=== PATIENT | female | born 1970 | race Caucasian/White ===

== ENCOUNTER 2020-01-01 09:45 | Day surgery (SDC) | payer BC, OTHER ==
[2019-12-31 10:54] VITALS: BMI 23.9
--- NOTE | 2019-12-31 11:22 | P.GSHP ---
History of Present Illness H&P Date: 12/31/19 Pleasant 49 yo female with a long history of ca ox stones who for the last week has had intermittent sever colic on the right side due to a 5 mm stone in the distal right ureter as seen on ct scan Due to the persistent pain, nausea and vomitting she wishes surgery to remove the stone. - Constitutional Constitutional: Denies chills, Denies fever - EENT Eyes: denies blurred vision, denies pain Ears, nose, mouth and throat: Denies headache, Denies sore throat - Cardiovascular Cardiovascular: Denies chest pain, Denies shortness of breath - Respiratory Respiratory: Denies cough, Denies 7 - Gastrointestinal Gastrointestinal: Denies abdominal pain, Denies diarrhea, Denies nausea, Denies vomiting - Genitourinary (Female) Genitourinary: Denies dysuria, Denies hematuria - Genitourinary (Male) Genitourinary: Denies dysuria, Denies hematuria - Musculoskeletal Musculoskeletal: Denies myalgias - Integumentary Integumentary: Denies pruritus, Denies rash - Neurological Neurological: Denies numbness, Denies weakness - Psychiatric Psychiatric: Denies anxiety, Denies depression - Endocrine Endocrine: Denies fatigue, Denies weight change Past Medical History Past Medical History: Thyroid Disorder Additional Past Medical History / Comment(s): migraines, mult kidney stones, seasonal allergies, occ constipation, History of Any Multi-Drug Resistant Organisms: None Reported Past Surgical History: Section, Hysterectomy, Orthopedic Surgery Additional Past Surgical History / Comment(s): SEVERAL DOUBLE J STENTS, MULT LITHOTRIPSYS, cystoscopy, BILATERAL percutaneous nephrostolithotomy, sinus surgery, lasik eye surgery, left hip surgery Past Anesthesia/Blood Transfusion Reactions: Motion Sickness, Postoperative Nausea & Vomiting (PONV) Smoking Status: Current some day smoker - Past Family History Mother Family Medical History: No Reported History Medications and Allergies Home Medications Medication Instructions Recorded Confirmed Type Levothyroxine Sodium [Synthroid] 75 mcg PO DAILY 05/27/15 12/31/19 History Butalb/APAP/Caff 50-325-40Mg 1 tab PO BID PRN 05/25/16 12/31/19 History [Fioricet 50-325-40] Hydrocodone/Acetaminophen [[place] 1 tab PO Q6HR PRN 12/31/19 12/31/19 History 5-325] Zonisamide 100 mg PO BID 12/31/19 12/31/19 History Allergies Allergy/AdvReac Type Severity Reaction Status Date / Time codeine AdvReac Severe Nausea & Verified 12/31/19 10:43 Vomiting Surgical - Exam - General well developed, well nourished, moderate distress - Eyes PERRL - ENT no hearing loss - Neck trachea midline - Respiratory normal expansion, normal respiratory effort - Cardiovascular Rhythm: regular - Abdomen Abdomen: tender - Integumentary no rash, no growths - Neurologic normal coordination, normal sensation - Musculoskeletal normal gait, normal posture - Psychiatric oriented to time, oriented to person, oriented to place, speech is normal, memory intact Results - Imaging CT scan - abdomen: report reviewed, image reviewed CT scan - pelvis: report reviewed, image reviewed Assessment and Plan Assessment: Impression: Right ureteral stone with severe ureteral colic. Plan Right ureteroscopy with laser lithotripsy
--- NOTE | 2020-01-01 08:49 | XR ---
EXAMINATION TYPE: XR KUB DATE OF EXAM: 01/01/2020 8:36 AM CLINICAL HISTORY: Right-sided abdominal pain. Nephrolithiasis. TECHNIQUE: Single supine KUB image of the abdomen is obtained. COMPARISON: 05/25/2016. FINDINGS: The previously seen large left renal calculus is no longer present. There are at least 4 le ft renal calculi with the largest measuring 6 mm. Probable right renal calculi are seen, at least 3 i n number measuring up to 3 mm, however these are partially obscured by overlying bowel. New calculus overlying the urinary bladder measures 9 mm in comparison to the prior. Right hemipelvic phlebolith i s again noted. Punctate densities adjacent to the right transverse process could be within bowel, phl eboliths, or within the ureter. IMPRESSION: 1. Bilateral nephrolithiasis although the right renal shadow is partially obscured by bowel. 2. Punctate calculi adjacent to the right L5 transverse process could be within bowel, phleboliths, o r within the ureter. 4. New 9 mm calculus overlying the urinary bladder exam of 2015 may be located within the urinary swapna dder or at the right distal ureter.
[~2020-01-01 09:45] MED LIST: DEXAMETHASONE SOD PHOSPHATE 10 MG/ML 1 ML VIAL IV ONE; HYDROmorphone 0.5 MG/0.5 ML SYRINGE IVP PRN; LACTATED RINGERS 1,000 ML IV SCH; ONDANSETRON 4 MG/2 ML VIAL IVP ONE; SCOPOLAMINE 1.5MG/72HR PATCH TRANSDERM ONE
[2020-01-01] MEDS ORDERED: fentaNYL (PF) 50 MCG/ML 2 ML AMP ONE (10:15)
[2020-01-01] MEDS ORDERED: MIDAZOLAM 2 MG/2 ML VIAL ONE (10:15)
[2020-01-01] MEDS ORDERED: LIDOCAINE 1% INJ 10MG/ML (20 ML MDV) ONE (10:15)
[2020-01-01] MEDS ORDERED: PROPOFOL 10 MG/ML 20 ML VIAL IV ONE (10:15)
--- NOTE | 2020-01-01 10:47 | P.OP ---
Date of Procedure: 01/01/20 Preoperative Diagnosis: Right ureteral calculus Postoperative Diagnosis: Same Procedure(s) Performed: Cystoscopy, right ureteroscopy laser lithotripsy Anesthesia: HEATHER Surgeon: Pancho James Pathology: other (Stone) Condition: stable Disposition: PACU Indications for Procedure: The patient is 49. She has active urine calcium oxalate stone formation. She has had multiple metabolic evaluations different medical centers and continues to form stones. She has a 9-10 mm distal ureteral stone causing significant colic over the last week she comes ureteroscopic stone extraction Description of Procedure: The patient is brought to the operating suite. She is given a general end otracheal anesthesia. She's placed lithotomy position with sterile prep and drape. Under fluoroscopy the stone was seen in the region of the distal ureter. Cystoscopy Foroblique lens and 22-[place] sheath identifies normal urethra. The bladder mucosa is unremarkable. The right ureteral orifice is slightly swollen. The 7-[place] mini ureteroscope I passed the scope into the intramural tunnel wh ere the large stone is identified. With the 365 laser probe and 4 W of energy the stone was broken into tiny pieces and flushed out of the ureter. There is not enough edema to leave a double-J catheter. The bladder is drained the stone was collected the patient's awake and returned recovery in good condition. She tolerated procedure well be discharged home upon recovery and found the office in one week.
[2020-01-01 10:54] VITALS: TEMP 98.5
--- NOTE | 2020-01-01 11:02 | FL ---
EXAMINATION TYPE: FL guidance operating room DATE OF EXAM: 01/01/2020 CLINICAL HISTORY: Right sided renal stones. TECHNIQUE: Fluoroscopy. COMPARISON: Same day abdominal x-ray. FINDINGS: Fluoroscopic guidance was provided during right renal stone retrieval procedure performed by Dr. James. A total of 2 seconds of fluoroscopic time was utilized during the procedure and two sp ot intraoperative images are acquired. Images of the pelvis and lower abdomen do not show good visual ization of right sided stone. IMPRESSION: As Above.
[2020-01-01 11:56] VITALS: RESP 17
[2020-01-01 12:00] VITALS: BP 113/63; PULSE 77
== END 2020-01-01 12:00 | disposition home or self-care (01) ==
LOC: OR 09:45
PROVIDERS: ATTEND Urology
DX: N20.1 Calculus of ureter (principal); E07.9 Disorder of thyroid, unspecified; G43.909 Migraine, unspecified, not intractable, without status migrainosus; F17.200 Nicotine dependence, unspecified, uncomplicated; Z88.5 Allergy status to narcotic agent; Z79.890 Hormone replacement therapy; Z79.899 Other long term (current) drug therapy; Z87.442 Personal history of urinary calculi; Z90.710 Acquired absence of both cervix and uterus; Z98.891 History of uterine scar from previous surgery; Z98.890 Other specified postprocedural states
CPT/HCPCS: 82365; 87635; 74018; 52353; J2250; J1100; J2405; J0690; J2001; J3010; J2704; J1170

== ENCOUNTER → 2023-02-07 | Outpatient (CLI) | payer BC ==
[2023-02-07 20:15] LABS: BUN/Creat Ratio 8.78 Ratio (12.00-20.00); Blood Urea Nitrogen 7.9 mg/dL (9.0-27.0); Calcium 9.9 mg/dL (8.7-10.3); Carbon Dioxide 21.9 mmol/L (21.6-31.8); Chloride 104 mmol/L (96-109); Glucose 81 mg/dL (70-110); Potassium 5.1 mmol/L (3.5-5.5); Sodium 141 mmol/L (135-145)
[2023-02-07 22:09] LABS: Basophils # (A) 0.07 X 10*3/uL (0.00-0.10); Basophils % (A) 0.9 %; Eosinophils # (A) 0.08 X 10*3/uL (0.04-0.35); HGB 14.6 d/dL (12.0-15.0); Lymphocytes # (A) 1.28 X 10*3/uL (0.90-5.00); Lymphocytes % (A) 16.5 %; MCHC 32.4 d/dL (32.0-37.0); MCV 92.4 FL (80.0-97.0); Mean Platelet Volume 9.9 FL (9.5-12.2); Monocytes # (A) 0.41 X 10*3/uL (0.20-1.00); Monocytes % (A) 5.3 %; NRBC Per 100 WBC 0 X 10*3/uL (0.00-0.01); Neutrophils # (A) 5.87 X 10*3/uL (1.80-7.70); Neutrophils % (A) 75.9 %; Platelet Count 317 X 10*3/uL (140-440); RBC 4.87 X 10*6/uL (4.10-5.20); WBC 7.74 X 10*3/uL (4.50-10.00)
== END | disposition home or self-care (01) ==
LOC: LABPAT 10:59
PROVIDERS: ATTEND Urology
DX: Z01.812 Encounter for preprocedural laboratory examination (principal); N20.1 Calculus of ureter
CPT/HCPCS: 80048; 85025

== ENCOUNTER 2023-02-08 08:43 | Day surgery (SDC) | payer BC ==
[2023-02-07 13:20] VITALS: BMI 23.3
--- NOTE | 2023-02-07 18:13 | P.GSHP ---
History of Present Illness H&P Date: 02/07/23 52 yo female with a history of stones has a 3 day history of right flank pain with pelvic pressure. A ct scan was done identifying a 6 mm right uvj stone. She wants the stone out because she has persistnet pain and has to go out of town in the near fut. SHe comes for a right ureteroscopy with laser lithotripsy. - Constitutional Constitutional: Denies chills, Denies fever - EENT Eyes: denies blurred vision, denies pain Ears, nose, mouth and throat: Denies headache, Denies sore throat - Cardiovascular Cardiovascular: Denies chest pain, Denies shortness of breath - Respiratory Respiratory: Denies cough, Denies 7 - Gastrointestinal Gastrointestinal: Denies abdominal pain, Denies diarrhea, Denies nausea, Denies vomiting - Genitourinary (Female) Genitourinary: Denies dysuria, Denies hematuria - Genitourinary (Male) Genitourinary: Denies dysuria, Denies hematuria - Musculoskeletal Musculoskeletal: Denies myalgias - Integumentary Integumentary: Denies pruritus, Denies rash - Neurological Neurological: Denies numbness, Denies weakness - Psychiatric Psychiatric: Denies anxiety, Denies depression - Endocrine Endocrine: Denies fatigue, Denies weight change Past Medical History Past Medical History: GERD/Reflux, Thyroid Disorder Additional Past Medical History / Comment(s): migraines, mult kidney stones, occ constipation, hiatal hernia, hx of overactive parathyroid (removed). History of Any Multi-Drug Resistant Organisms: None Reported Past Surgical History: Section, Hysterectomy, Orthopedic Surgery Additional Past Surgical History / Comment(s): SEVERAL DOUBLE J STENTS, MULT LITHOTRIPSYS, cystoscopy, BILATERAL percutaneous nephrostolithotomy, sinus surgery, lasik eye surgery, left hip surgery, parathyroidectomy Past Anesthesia/Blood Transfusion Reactions: Previous Problems w/ Anesthesia, Motion Sickness, Postoperative Nausea & Vomiting (PONV) Past Psychological History: No Psychological Hx Reported Smoking Status: Former smoker Past Alcohol Use History: None Reported Additional Past Alcohol Use History / Comment(s): started smoking age 22, quit smoking sep 2022 Past Drug Use History: None Reported - Past Family History Mother Family Medical History: No Reported History Medications and Allergies Home Medications Medication Instructions Recorded Confirmed Type Levothyroxine Sodium [Synthroid] 75 mcg PO DAILY 05/27/15 02/07/23 History Butalb/APAP/Caff 50-325-40Mg 1 tab PO BID PRN 05/25/16 02/07/23 History [Fioricet 50-325-40] Hydrocodone/Acetaminophen [[place] 1 tab PO Q6HR PRN 12/31/19 02/07/23 History 5-325] Sulfamethox-Tmp 800-160Mg [Bactrim 1 tab PO DAILY 02/07/23 02/07/23 History DS 800-160 mg] Tamsulosin HCl [Flomax] 0.4 mg PO PC-BRKFST 02/07/23 02/07/23 History Allergies Allergy/AdvReac Type Severity Reaction Status Date / Time codeine AdvReac Severe Nausea & Verified 02/07/23 12:56 Vomiting Surgical - Exam - General well developed, well nourished, no distress - Eyes normal ocular movement, no icteric - ENT no hearing loss, no congestion - Neck no masses, trachea midline - Respiratory normal respiratory effort, clear to auscultation - Abdomen Abdomen: soft, non tender, no guarding, no rigid, no rebound - Integumentary no rash, no abnormal pigmentation - Neurologic no disoriented, no combative - Psychiatric oriented to time, oriented to person, oriented to place, speech is normal, memory intact Results - Imaging CT scan - abdomen: report reviewed, image reviewed CT scan - pelvis: report reviewed Assessment and Plan Assessment: Impression Right distal ureteral stone, Bilateral renal stones Plan: right ureterocopy with laser lithotripsy
[2023-02-08] MEDS ORDERED: droPERidol 5 MG/2 ML VIAL IVP ONE (09:07)
[2023-02-08] MEDS ORDERED: LACTATED RINGERS 1,000 ML IV SCH (09:07)
[2023-02-08] MEDS ORDERED: LIDOCAINE 1% (10MG/ML) FOR IV START INTRADERMA PRN (09:07)
[2023-02-08] MEDS ORDERED: fentaNYL (PF) 50 MCG/ML 2 ML AMP IV PRN (09:07)
[2023-02-08] MEDS ORDERED: DEXAMETHASONE SOD PHOSPHATE 4 MG/ML 1 ML VIAL IV ONE (09:07)
[2023-02-08] MEDS ORDERED: ONDANSETRON 4 MG/2 ML VIAL IVP ONE (09:07)
--- NOTE | 2023-02-08 09:24 | XR ---
EXAMINATION TYPE: XR KUB DATE OF EXAM: 02/08/2023 8:56 AM INDICATION: Patient age:Female; 52 years old; Reason for study: N20.0; COMPARISON: 01/01/2020 TECHNIQUE: One radiographic view of the abdomen was obtained. FINDINGS: The bowel gas pattern is nonspecific without dilated loops of small or large bowel. There i s no evidence for organomegaly or pneumoperitoneum. The osseous structures are intact. Millimeter ri ght distal ureteral calculus, multiple calculi project over the kidneys bilaterally. Fecal material a nd gas are demonstrated throughout the colon and rectum. IMPRESSION: Right 6 mm distal ureteral calculus suspected. Consider evaluation with CT renal stone protocol. Rex tional consultations project over the kidneys which are slightly evaluated on radiography.
[2023-02-08 09:26] VITALS: RESP 16
[2023-02-08] MEDS ORDERED: SCOPOLAMINE 1 MG/72 HR PATCH TRANSDERM ONE (09:41)
[2023-02-08] MEDS ORDERED: SUCCINYLCHOLINE CHLORIDE 200 MG/10 ML VIAL IV ONE (10:39)
[2023-02-08] MEDS ORDERED: LIDOCAINE 2% INJ 20 MG/ML (2 ML VIAL) ONE (10:39)
[2023-02-08] MEDS ORDERED: fentaNYL (PF) 50 MCG/ML 2 ML AMP ONE (10:39)
[2023-02-08] MEDS ORDERED: MIDAZOLAM 2 MG/2 ML VIAL ONE (10:39)
[2023-02-08] MEDS ORDERED: PROPOFOL 10 MG/ML 20 ML VIAL IV ONE (10:39)
[2023-02-08] MEDS ORDERED: SODIUM CHLORIDE 0.9% 50 ML with ceFAZolin 1,000 MG IV ONE ×2 (10:55)
--- NOTE | 2023-02-08 11:14 | P.OP ---
Date of Procedure: 02/08/23 Preoperative Diagnosis: Right ureteral calculus with obstruction and colic Postoperative Diagnosis: Same Procedure(s) Performed: Cystoscopy, right ureteroscopy with laser lithotripsy and stone basketing Anesthesia: HEATHER Surgeon: Pancho James Estimated Blood Loss (ml): 0 Pathology: none sent Condition: stable Disposition: PACU Indications for Procedure: . She is passing a 6 mm distal right ureteral stone. Because of colic she comes for ureteroscopy and laser lithotripsy right Description of Procedure: Patient brought to the operative suite. Given a general anesthetic and placed lithotomy position with sterile prep. The stone was seen under fluoroscopy. Cystoscopy with a Foroblique lens and 21-[place] sheath is normal. Both ureteral orifices are down find the right is somewhat swollen. The 7-[place] mini ureteroscope was passed up to the stone in the right ureter. With the 365 laser probe the stone was broken into tiny pieces the larger pieces are basketed and pulled into the bladder. I reinspected the right ureter there is no apolinar ining stone. There is not enough edema to leave the stent. The bladder is drained the patient is awakened and returned recovery room good condition. She'll be discharged home upon recovery and found the office in one week.
[2023-02-08 11:33] VITALS: TEMP 97.5
--- NOTE | 2023-02-08 11:51 | FL ---
Intraoperative/procedural fluoroscopic services were provided. Total fluoroscopy time is 2 seconds wi th a total of 1 submitted images to PACS. Please see the operative/procedural note for further detail s. DAP: 0.1331 Gycm2
[2023-02-08 12:46] VITALS: BP 122/72; PULSE 68
== END 2023-02-08 12:47 | disposition home or self-care (01) ==
LOC: OR 08:43
PROVIDERS: ATTEND Urology
DX: N20.1 Calculus of ureter (principal); K21.9 Gastro-esophageal reflux disease without esophagitis; E07.9 Disorder of thyroid, unspecified; Z87.442 Personal history of urinary calculi; Z90.710 Acquired absence of both cervix and uterus; Z88.5 Allergy status to narcotic agent; Z98.890 Other specified postprocedural states; Z87.891 Personal history of nicotine dependence; Z79.899 Other long term (current) drug therapy
CPT/HCPCS: 74018; 52353; C1769; J2250; J0330; J1100; J2405; J0690; J3010; J2704; J2001

== ENCOUNTER → 2023-09-20 | Outpatient (CLI) | payer BC ==
--- NOTE | 2023-09-20 13:54 | XR ---
EXAMINATION TYPE: XR KUB DATE OF EXAM: 09/20/2023 1:38 PM CLINICAL INDICATION:Female, 52 years old with history of N20.0 Calculus kidney; [facility] COMPARISON: None. TECHNIQUE: One radiographic view of the abdomen was obtained. FINDINGS: The bowel gas pattern is nonspecific without dilated loops of small or large bowel. There i s no evidence for organomegaly or pneumoperitoneum. The osseous structures are intact. Fecal materia l and gas are demonstrated throughout the colon and rectum. The right pelvis near the ureterovesicul ar junction on prior is no longer visualized. There remains left renal calculi measuring up to 16 mm. IMPRESSION: Prior right ureterovesicular junction calculus measuring 6 mm on 01/31/2023 is no longer visualized. S table left renal calculi. Nonspecific bowel gas pattern without radiographic evidence for acute process.
== END | disposition home or self-care (01) ==
LOC: RADXRMAIN 13:26
PROVIDERS: ATTEND Urology
DX: N20.2 Calculus of kidney with calculus of ureter (principal)
CPT/HCPCS: 74018

== ENCOUNTER 2023-09-27 08:05 | Day surgery (SDC) | payer BC ==
[2023-09-22 14:37] VITALS: BMI 22.3
--- NOTE | 2023-09-26 12:34 | P.GSHP ---
History of Present Illness H&P Date: 09/26/23 Pleasant 52-year-old female with known history of active calcium oxalate urolithiasis. She has been treated multiple times by myself for kidney stones. She has been through the [facility] for metabolic evaluation. She still is forming stones. She recently was in the office where she had 3 left renal stones in the left lower pole as well as a 15 mm stone in the left upper pole consistent with a calyceal diverticulum. She is having intermittent colic. We discussed treatment options of. She comes for left ureteroscopy and laser lithotripsy - Constitutional Constitutional: Denies chills, Denies fever - EENT Eyes: denies blurred vision, denies pain Ears, nose, mouth and throat: Denies headache, Denies sore throat - Cardiovascular Cardiovascular: Denies chest pain, Denies shortness of breath - Respiratory Respiratory: Denies cough, Denies 7 - Gastrointestinal Gastrointestinal: Denies abdominal pain, Denies diarrhea, Denies nausea, Denies vomiting - Genitourinary (Female) Genitourinary: Denies dysuria, Denies hematuria - Genitourinary (Male) Genitourinary: Denies dysuria, Denies hematuria - Musculoskeletal Musculoskeletal: Denies myalgias - Integumentary Integumentary: Denies pruritus, Denies rash - Neurological Neurological: Denies numbness, Denies weakness - Psychiatric Psychiatric: Denies anxiety, Denies depression - Endocrine Endocrine: Denies fatigue, Denies weight change Past Medical History Past Medical History: GERD/Reflux, Thyroid Disorder Additional Past Medical History / Comment(s): migraines, mult kidney stones, occ constipation, hiatal hernia, hx of overactive parathyroid (removed). History of Any Multi-Drug Resistant Organisms: None Reported Past Surgical History: Section, Hysterectomy, Orthopedic Surgery Additional Past Surgical History / Comment(s): SEVERAL DOUBLE J STENTS, MULT LITHOTRIPSYS, cystoscopy, BILATERAL percutaneous nephrostolithotomy, sinus surgery, lasik eye surgery, left hip surgery, parathyroidectomy Past Anesthesia/Blood Transfusion Reactions: Previous Problems w/ Anesthesia, Motion Sickness, Postoperative Nausea & Vomiting (PONV) Smoking Status: Former smoker - Past Family History Mother Family Medical History: No Reported History Medications and Allergies Home Medications Medication Instructions Recorded Confirmed Type Ibuprofen [Motrin] 600 mg PO Q8HR PRN 09/22/23 09/22/23 History Levothyroxine Sodium [Synthroid] 50 mcg PO DAILY 09/22/23 09/22/23 History Linaclotide [Linzess] 72 mcg PO Q2D 09/22/23 09/22/23 History RABEprazole SODIUM 20 mg PO DAILY 09/22/23 09/22/23 History traMADol HCL 50 mg PO Q6H PRN 09/22/23 09/22/23 History Allergies Allergy/AdvReac Type Severity Reaction Status Date / Time codeine AdvReac Severe Nausea & Verified 09/22/23 14:23 Vomiting Surgical - Exam - General well developed, well nourished, no distress - Eyes normal ocular movement, no icteric - ENT no hearing loss, no congestion - Neck no masses, trachea midline - Respiratory normal respiratory effort, clear to auscultation - Abdomen Abdomen: soft, non tender, no guarding, no rigid, no rebound - Integumentary no rash, no abnormal pigmentation - Neurologic no disoriented, no combative - Psychiatric oriented to time, oriented to person, oriented to place, speech is normal, memory intact Results - Imaging Abdominal x-ray: report reviewed, image reviewed Assessment and Plan Assessment: Impression: Left renal calculi with colic Plan left ureteroscopy laser lithotripsy possible stent
[~2023-09-27 08:05] MED LIST changes: +AMPICILLIN 1,000 MG in SODIUM CHLORIDE 0.9% 50 ML IVPB PRN; -DEXAMETHASONE SOD PHOSPHATE 10 MG/ML 1 ML VIAL IV ONE; -HYDROmorphone 0.5 MG/0.5 ML SYRINGE IVP PRN; -LACTATED RINGERS 1,000 ML IV SCH; -ONDANSETRON 4 MG/2 ML VIAL IVP ONE; -SCOPOLAMINE 1.5MG/72HR PATCH TRANSDERM ONE
[2023-09-27] MEDS ORDERED: fentaNYL (PF) 50 MCG/ML 2 ML AMP IV PRN (08:46)
[2023-09-27] MEDS: LACTATED RINGERS 1,000 ML IV SCH (08:56)
--- NOTE | 2023-09-27 08:56 | XR ---
EXAMINATION TYPE: XR KUB DATE OF EXAM: 09/27/2023 8:18 AM CLINICAL INDICATION:Female, 52 years old with history of KUB ON ADMISSION; [facility] COMPARISON: 09/20/2023. TECHNIQUE: One radiographic view of the abdomen was obtained. FINDINGS: The bowel gas pattern is nonspecific without dilated loops of small or large bowel. There i s no evidence for organomegaly or pneumoperitoneum. The osseous structures are intact. Multiple merlyn cifications project over the left kidney measuring up to 15 mm. Fecal material and gas are demonstrat ed throughout the colon and rectum. IMPRESSION: Multiple calcifications project over the left kidney measuring up to 15 mm. Findings aren't significa ntly changed from 09/20/2023.
[2023-09-27] MEDS: DEXAMETHASONE SOD PHOSPHATE 4 MG/ML 1 ML VIAL IV ONE (09:07)
[2023-09-27] MEDS: ONDANSETRON 4 MG/2 ML VIAL IVP ONE (09:07)
[2023-09-27] MEDS: GENTAMICIN 80 MG in SODIUM CHLORIDE 0.9% 100 ML IVPB PRN (09:13)
[2023-09-27] MEDS ORDERED: KETOROLAC 15 MG/ML 1 ML VIAL ONE (10:29)
[2023-09-27] MEDS ORDERED: LIDOCAINE 1% INJ 10MG/ML (20 ML MDV) ONE (10:29)
[2023-09-27] MEDS ORDERED: fentaNYL (PF) 50 MCG/ML 2 ML AMP ONE (10:29)
[2023-09-27] MEDS ORDERED: MIDAZOLAM 2 MG/2 ML VIAL ONE (10:29)
[2023-09-27] MEDS ORDERED: PROPOFOL 10 MG/ML 20 ML VIAL IV ONE (10:29)
[2023-09-27] MEDS ORDERED: PHENYLEPHRINE 10 MG/ML VIAL ONE (10:29)
[2023-09-27] MEDS: LACTATED RINGERS 1,000 ML IV ONE (11:12)
--- NOTE | 2023-09-27 12:04 | P.OP ---
Date of Procedure: 09/27/23 Preoperative Diagnosis: Painful left renal stones Postoperative Diagnosis: Same Procedure(s) Performed: Cystoscopy, left ureteroscopy with laser lithotripsy Anesthesia: HEATHER Surgeon: Pancho James Estimated Blood Loss (ml): 0 Pathology: other (Stone) Condition: stable Disposition: PACU Indications for Procedure: The patient is 52. She has active calcium oxalate urolithiasis despite medical management and parathyroid surgery. She has a 15-16 mm painful left upper pole stone as well as 3 mid to lower pole 5 mm stones. She comes for left ureteroscopy and laser lithotripsy. She understands that suddenly stones could be calyceal diverticula including the upper pole stone Description of Procedure: Patient brought to the operative suite. Given a general anesthetic. Placed lithotomy position with a sterile prep and drape. Cystoscopy identifies a normal urethra normal ureteral orifices in normal bladder mucosa. An 035 wires passed up the left ureter into the renal pelvis. Over the wires passed a 99-33-[place] reentry sheath. The inner sheath is removed. I passed the flexible ureteroscope into the collecting system throughout. I identify 2 stones in the mid and lower pole calyx each relatively small. There is a very tight ostium to the 5-6 mm midpole stone that is probably in a calyceal diverticulum. The larger 16 mm stone is seen in the upper pole calyx, and not in a calyceal diverticulum. I first do laser lithotripsy to the 2 small lower pole stones. I then tried open the ostium of the infundibula to the calyceal diverticula but it is too tight to do so successfully. I then moved to the upper pole stone and with the 275 laser probe slowly destroyed the upper pole stone into sand a. I basket the largest fragments. I irrigate thoroughly the collecting system and other than sand there is no significant remaining fr agments. I do pullout ureteroscopy and see no remaining stones. I elect not to leave a stent. The bladder is drained the patient is awakened and returned recovery room good condition. She'll be discharged home upon recovery and found the office in one week. Blood loss is minimal
[2023-09-27 12:16] VITALS: TEMP 97
[2023-09-27] MEDS: HYDROmorphone 0.5 MG/0.5 ML SYRINGE IVP ONE ×2 (12:34→12:41)
[2023-09-27] MEDS ORDERED: HYDROcodone/APAP 5-325MG 1 EACH TAB ONE (13:13)
[2023-09-27] MEDS: HYDROcodone/APAP 5-325MG 1 EACH TAB PO ONE (13:14)
[2023-09-27 13:16] VITALS: PULSE 64; RESP 16
[2023-09-27 13:46] VITALS: BP 111/60
--- NOTE | 2023-09-27 16:01 | FL ---
EXAMINATION TYPE: FL guidance operating room DATE OF EXAM: 09/27/2023 Comparison: None Clinical History: 52-year-old female CYSTO LITHOLEFT RENAL STONE Findings: FLUORO - 25 SEC DAP - 1.1155 Gycm2. 9 images submitted. Impression: Fluoroscopy for urology procedure as above.
== END 2023-09-27 14:02 | disposition home or self-care (01) ==
LOC: OR 08:05
PROVIDERS: ATTEND Urology
DX: N20.0 Calculus of kidney (principal); K21.9 Gastro-esophageal reflux disease without esophagitis; Z98.891 History of uterine scar from previous surgery; Z90.710 Acquired absence of both cervix and uterus; Z98.890 Other specified postprocedural states; Z87.891 Personal history of nicotine dependence; Z79.890 Hormone replacement therapy; Z79.899 Other long term (current) drug therapy; Z88.5 Allergy status to narcotic agent
CPT/HCPCS: 82365; 74018; 52353; C1769; C1894; J2250; J1100; J2405; J2001; J3010; J1580; J1885; J2704; J1170; J2371

== ENCOUNTER 2024-07-29 07:46 | Observation (INO) | payer BC ==
[2024-07-29 08:28] LABS: Basophils # (A) 0.1 k/uL (0-0.2); Basophils % (A) 1 %; Eosinophils # (A) 0.3 k/uL (0-0.7); Eosinophils % (A) 3 %; HCT 41.8 % (34.0-46.0); HGB 13.7 gm/dL (11.4-16.0); Lymphocytes % (A) 21 %; MCH 29.8 pg (25.0-35.0); MCHC 32.8 g/dL (31.0-37.0); MCV 90.7 fL (80.0-100.0); Mean Platelet Volume 6.7; Monocytes # (A) 0.5 k/uL (0-1.0); Monocytes % (A) 6 %; Neutrophils # (A) 6.2 k/uL (1.3-7.7); Neutrophils % (A) 68 %; Platelet Count 300 k/uL (150-450); RBC 4.61 m/uL (3.80-5.40); RDW 12.1 % (11.5-15.5); WBC 9.1 k/uL (3.8-10.6)
[2024-07-29 08:39] LABS: ALT 17 U/L (4-34); AST 24 U/L (14-36); African American GFR (CKD) 75 (>60 ml/min/1.73 sqM); Albumin 4.1 g/dL (3.5-5.0); Alkaline Phosphatase 93 U/L (38-126); Anion Gap 6 mmol/L; Blood Urea Nitrogen 19 mg/dL (7-17); Calcium 9.2 mg/dL (8.4-10.2); Carbon Dioxide 29 mmol/L (22-30); Chloride 103 mmol/L (98-107); Glucose 95 mg/dL (74-99); Non-African American GFR(CKD) 65 (>60 ml/min/1.73 sqM); Potassium 4.2 mmol/L (3.5-5.1); Sodium 138 mmol/L (137-145); Total Bilirubin 0.5 mg/dL (0.2-1.3); Total Protein 6.7 g/dL (6.3-8.2)
[2024-07-29 08:47] LABS: Appearance,Urine Clear (Clear); Bilirubin,Urine Negative (Negative); Blood,Urine Large (Negative); Color,Urine Colorless; Glucose,Urine (UA) Negative (Negative); Ketones,Urine Negative (Negative); Leukocyte Esterase,Urine Small (Negative); Nitrite,Urine Negative (Negative); Protein,Urine Negative (Negative); RBC,Urine 3 /hpf (0-5); Specific Gravity,Urine 1.005 (1.001-1.035); Squamous Epithelial Cell,Urine 1 /hpf (0-4); Urobilinogen,Urine <2.0 mg/dL (<2.0); WBC,Urine 5 /hpf (0-5)
--- NOTE | 2024-07-29 08:50 | ED ---
General Adult HPI - General Chief complaint: Abdominal Pain Stated complaint: L sided flank pain Time Seen by Provider: 07/29/24 08:03 Source: patient Mode of arrival: ambulatory Limitations: no limitations - History of Present Illness Initial comments: Dictation was produced using [employer] dictation software. please excuse any grammatical, word or spelling errors. Chief Complaint: 53-year-old female left flank pain History of Present Illness: Patient is a 53-year-old female extensive history of nephrolithiasis. States that earlier this year she passed a large 10 mm stone. Over the last week she has been dealing with left-sided flank pain. Mild associated nausea. No fever, chills or night sweats. Patient has had multiple urologic procedures for treatment of kidney stones. Patient states that the pain is mildly colicky and slightly constant The ROS documented in this emergency department record has been reviewed and confirmed by me. Those systems with pertinent positive or negative responses have been documented in the HPI. All other systems are other negative and/or noncontributory. - Related Data Home Medications Medication Instructions Recorded Confirmed Ibuprofen [Motrin] 600 mg PO Q8HR PRN 09/22/23 09/27/23 Levothyroxine Sodium [Synthroid] 50 mcg PO DAILY 09/22/23 09/27/23 Linaclotide [Linzess] 72 mcg PO Q2D 09/22/23 09/27/23 RABEprazole SODIUM 20 mg PO DAILY 09/22/23 09/27/23 traMADol HCL 50 mg PO Q6H PRN 09/22/23 09/27/23 Previous Rx's Medication Instructions Recorded HYDROcodone/APAP 5-325MG [[place] 1 tab PO Q4HR PRN #14 tab 09/27/23 5-325] Ketorolac [Toradol] 10 mg PO Q6HR PRN #20 tab 09/27/23 Allergies Allergy/AdvReac Type Severity Reaction Status Date / Time codeine AdvReac Severe Nausea & Verified 07/29/24 08:02 Vomiting Review of Systems ROS Statement: Those systems with pertinent positive or pertinent negative responses have been documented in the HPI. ROS Other: All systems not noted in ROS Statement are negative. Past Medical History Past Medical History: GERD/Reflux, Hyperlipidemia, Thyroid Disorder Additional Past Medical History / Comment(s): migraines, mult kidney stones, occ constipation, hiatal hernia, hx of overactive parathyroid (removed). History of Any Multi-Drug Resistant Organisms: None Reported Past Surgical History: Section, Hysterectomy, Orthopedic Surgery Additional Past Surgical History / Comment(s): SEVERAL DOUBLE J STENTS, MULT LITHOTRIPSYS, cystoscopy, BILATERAL percutaneous nephrostolithotomy, sinus surgery, lasik eye surgery, left hip surgery, parathyroidectomy Past Anesthesia/Blood Transfusion Reactions: Previous Problems w/ Anesthesia, Motion Sickness, Postoperative Nausea & Vomiting (PONV) Past Psychological History: No Psychological Hx Reported Smoking Status: Current every day smoker Past Alcohol Use History: None Reported Past Drug Use History: None Reported - Past Family History Mother Family Medical History: No Reported History General Exam - General Exam Comments Initial Comments: PHYSICAL EXAM: General Impression: Alert and oriented x3, not in acute distress HEENT: Normocephalic atraumatic, extra-ocular movements intact, pupils equal and reactive to light bilaterally, mucous membranes moist. Cardiovascular: Heart regular rate and rhythm Chest: Able to complete full sentences, no retractions, no tachypnea Abdomen: abdomen soft, non-tender, non-distended, no organomegaly Musculoskeletal: Pulses present and equal in all extremities, no peripheral edema, no CVA pain Motor: no focal deficits noted Neurological: CN II-XII grossly intact, no focal motor or sensory deficits noted Skin: Intact with no visualized rashes Psych: Normal affect and mood Limitations: no limitations Course Vital Signs 07/29/24 08:00 Temperature 98.4 F Pulse Rate 71 Respiratory 20 Rate Blood Pressure 100/49 O2 Sat by Pulse 100 Oximetry Medical Decision Making - Medical Decision Making Was pt. sent in by a medical professional or institution (, PA, DISCHARGE PLANNER, urgent care, hospital, or prison...) When possible be specific @ -No Did you speak to anyone other than the patient for history (EMS, parent, family, police, friend...)? What history was obtained from this source @ -No Did you review nursing and triage notes (agree or disagree)? Why? @ -I reviewed and agree with nursing and triage notes Were old charts reviewed (outside hosp., previous admission, EMS record, old EKG, old radiological studies, urgent care reports/EKG's, prison records)? Report findings @ -No old charts were reviewed Differential Diagnosis (chest pain, altered mental status, abdominal pain women, abdominal pain men, vaginal bleeding, musculoskeletal, weakness, fever, dyspnea, syncope, headache, dizziness, GI bleed, back pain, seizure, CVA, palpatations, mental health)? @ -Differential Abdominal Pain Women: Appendicitis, Cholecystitis, diverticulosis, ischemic bowel, pancreatitis, hepatitis, UTI, gastroenteritis, AAA, incarcerated hernia, bowel obstruction, constipation, inflammatory bowel, hepatitis, peptic ulcer disease, splenic infarction, perforated viscus, vulvitis, ovarian torsion, PID, kidney stone, placenta abruption, this is not meant to be an all-inclusive list EKG interpreted by me (3pts min.). @ -None done X-rays interpreted by me (1pt min.). @ -None done CT interpreted by me (1pt min.). @ -CT shows obstructing left ureteral stone at the distal portion of the ureter U/S interpreted by me (1pt. min.). @ -None done What testing was considered but not performed or refused? (CT, X-rays, U/S, labs)? Why? @ -None What meds were considered but not given or refused? Why? @ -None Was smoking cessation discussed for >3mins.? @ -No Were there social determinants of health that impacted care today? How? (Homelessness, low income, unemployed, alcoholism, drug addiction, elam sportation, low edu. Level, literacy, decrease access to med. care, snf, rehab)? @ -No Was there de-escalation of care discussed even if they declined (Discuss DNR or withdrawal of care, Hospice)? DNR status @ -No What co-morbidities impacted this encounter? (DM, HTN, Smoking, COPD, CAD, Cancer, CVA, ARF, Chemo, Hep., AIDS, mental health diagnosis, sleep apnea, morbid obesity)? @ -Kidney stones Was patient admitted / discharged? Hospital course, mention meds given and route, prescriptions, significant lab abnormalities, going to OR and other pertinent info. @ -53-year-old female presents to the emergency department with symptomatic left kidney stone. She has been dealing with her symptoms for several days. Vital signs stable. Patient distress at the bedside. Abdomen is benign. La boratory evaluation obtained. CBC metabolic panel urinalysis negative. CT shows obstructing nephrolithiasis. Patient states that her pain is difficult to control. She requests hospital admission for further care. Case discussed with Dr. James who is agreeable with admission. Request patient be n.p.o. for likely urologic procedure Did you discuss the management of the patient with other professionals (professionals i.e. , PA, DISCHARGE PLANNER, lab, RT, psych nurse, medical social consultant, sales representative public utilities, teacher, hospital chief executive officer, correctional casework specialist)? Give summary @ -No Was critical care preformed (if so, how long)? @ -No Undiagnosed new problem with uncertain prognosis? @ -No Drug Therapy requiring intensive monitoring for toxicity (Heparin, Nitro, Insulin, Cardizem)? @ -No Were any procedures done? @ -No Diagnosis/symptom? Acute, or Chronic, or Acute on Chronic? Uncomplicated (without systemic symptoms) or Complicated (systemic symptoms)? @ -Symptomatic nephrolithiasis Side effects of treatment? @ -No Exacerbation, Progression, or Severe Exacerbation? @ -No Poses a threat to life or bodily function? How? (Chest pain, [place], [place], pneumonia, PE, COPD, DKA, ARF, appy, cholecystitis, CVA, Diverticulitis, Homicidal, Suicidal, threat to staff... and all critical care pts) @ -yes - Lab Data Result diagrams: 07/29/24 08:20 07/29/24 08:20 Lab Results 07/29/24 07/29/24 07/29/24 Range/Units 08:20 08:20 08:20 WBC 9.1 (3.8-10.6) k/uL RBC 4.61 (3.80-5.40) m/uL Hgb 13.7 (11.4-16.0) gm/dL Hct 41.8 (34.0-46.0) % MCV 90.7 (80.0-100.0) fL MCH 29.8 (25.0-35.0) pg MCHC 32.8 (31.0-37.0) g/dL RDW 12.1 (11.5-15.5) % Plt Count 300 (150-450) k/uL MPV 6.7 Neutrophils % 68 % Lymphocytes % 21 % Monocytes % 6 % Eosinophils % 3 % Basophils % 1 % Neutrophils # 6.2 (1.3-7.7) k/uL Lymphocytes # 2.0 (1.0-4.8) k/uL Monocytes # 0.5 (0-1.0) k/uL Eosinophils # 0.3 (0-0.7) k/uL Basophils # 0.1 (0-0.2) k/uL Sodium 138 (137-145) mmol/L Potassium 4.2 (3.5-5.1) mmol/L Chloride 103 (98-107) mmol/L Carbon Dioxide 29 (22-30) mmol/L Anion Gap 6 mmol/L BUN 19 H (7-17) mg/dL Creatinine 1.01 (0.52-1.04) mg/dL Est GFR (CKD-EPI)AfAm 75 (>60 ml/min/1.73 sqM) Est GFR (CKD-EPI)NonAf 65 (>60 ml/min/1.73 sqM) Glucose 95 (74-99) mg/dL Plasma Lactic Acid Jhonny (0.7-2.0) mmol/L Calcium 9.2 (8.4-10.2) mg/dL Total Bilirubin 0.5 (0.2-1.3) mg/dL AST 24 (14-36) U/L ALT 17 (4-34) U/L Alkaline Phosphatase 93 (38-126) U/L Total Protein 6.7 (6.3-8.2) g/dL Albumin 4.1 (3.5-5.0) g/dL Urine Color Colorless Urine Appearance Clear (Clear) Urine pH 7.0 (5.0-8.0) Ur Specific Dow 1.005 (1.001-1.035) Urine Protein Negative (Negative) Urine Glucose (UA) Negative (Negative) Urine Ketones Negative (Negative) Urine Blood Large H (Negative) Urine Nitrite Negative (Negative) Urine Bilirubin Negative (Negative) Urine Urobilinogen <2.0 (<2.0) mg/dL Ur Leukocyte Esterase Small H (Negative) Urine RBC 3 (0-5) /hpf Urine WBC 5 (0-5) /hpf Ur Squamous Epith Cells 1 (0-4) /hpf 07/29/24 Range/Units 08:20 WBC (3.8-10.6) k/uL RBC (3.80-5.40) m/uL Hgb (11.4-16.0) gm/dL Hct (34.0-46.0) % MCV (80.0-100.0) fL MCH (25.0-35.0) pg MCHC (31.0-37.0) g/dL RDW (11.5-15.5) % Plt Count (150-450) k/uL MPV Neutrophils % % Lymphocytes % % Monocytes % % Eosinophils % % Basophils % % Neutrophils # (1.3-7.7) k/uL Lymphocytes # (1.0-4.8) k/uL Monocytes # (0-1.0) k/uL Eosinophils # (0-0.7) k/uL Basophils # (0-0.2) k/uL Sodium (137-145) mmol/L Potassium (3.5-5.1) mmol/L Chloride (98-107) mmol/L Carbon Dioxide (22-30) mmol/L Anion Gap mmol/L BUN (7-17) mg/dL Creatinine (0.52-1.04) mg/dL Est GFR (CKD-EPI)AfAm (>60 ml/min/1.73 sqM) Est GFR (CKD-EPI)NonAf (>60 ml/min/1.73 sqM) Glucose (74-99) mg/dL Plasma Lactic Acid Jhonny 0.9 (0.7-2.0) mmol/L Calcium (8.4-10.2) mg/dL Total Bilirubin (0.2-1.3) mg/dL AST (14-36) U/L ALT (4-34) U/L Alkaline Phosphatase (38-126) U/L Total Protein (6.3-8.2) g/dL Albumin (3.5-5.0) g/dL Urine Color Urine Appearance (Clear) Urine pH (5.0-8.0) Ur Specific Dow (1.001-1.035) Urine Protein (Negative) Urine Glucose (UA) (Negative) Urine Ketones (Negative) Urine Blood (Negative) Urine Nitrite (Negative) Urine Bilirubin (Negative) Urine Urobilinogen (<2.0) mg/dL Ur Leukocyte Esterase (Negative) Urine RBC (0-5) /hpf Urine WBC (0-5) /hpf Ur Squamous Epith Cells (0-4) /hpf Disposition Clinical Impression: Kidney stone Disposition: ADMITTED IP TO THIS [facility] Condition: Fair Referrals: Erik Kimble DO [Primary Care Provider] - 1-2 days Decision Time: 10:31
[2024-07-29] MEDS: SODIUM CHLORIDE 0.9% 1,000 ML IV STA (09:29)
[2024-07-29] MEDS: KETOROLAC 15 MG/ML 1 ML VIAL IVP STA (09:30)
--- NOTE | 2024-07-29 09:54 | CT ---
EXAMINATION TYPE: CT abdomen pelvis wo con DATE OF EXAM: 07/29/2024 9:28 AM COMPARISON: None. CLINICAL INDICATION: Female, 53 years old with history of left flank pain, Left flank pain, left side spasms. HX of kidney stones. TECHNIQUE: Axial images with sagittal coronal reformats. Examination of the solid and hollow viscera is limited given the lack of contrast. CT DLP: 403.3 mGycm, Automated exposure control for dose reduction was used. FINDINGS: LUNG BASES: No evidence for nodule. No evidence for infiltrate. LIVER/GB: The gallbladder is unremarkable. No space-occupying hepatic lesion. PANCREAS: No pancreatic mass identified. No inflammatory process seen. SPLEEN: No evidence for splenomegaly. No intrasplenic lesions seen. ADRENALS: No adrenal nodules identified. No evidence for thickening. KIDNEYS: Noted are 2 mid left ureteral obstructing calculi measuring 7.2 and 8.1 cm located directly adjacent to each other. It is difficult to exclude a third calculus within the distal left ureter angel luis suring 7.8 mm. There is moderate to severe left-sided hydronephrosis. Innumerable bilateral renal merlyn culi are noted. No right-sided obstructing calculus present. BOWEL: Appendix has a normal appearance. No evidence of bowel obstruction. No inflammatory process. Lymph nodes: No evidence for adenopathy greater than 1 cm. Abdominal aorta: Atheromatous changes seen. No evidence for aneurysm. Genital organs: No significant abnormality. Other: No significant abnormality. IMPRESSION: 1. 3 left ureteral calculi felt to be present with the moderate to severe left-sided hydronephrosis. Multiple bilateral renal calculi and changes of medullary sponge kidney. [facility], , 07/29/2024 9:52 AM
[2024-07-29] MEDS: HYDROmorphone 1 MG/ML 1 ML SYRINGE IVP STA (10:22)
[2024-07-29] MEDS ORDERED: ONDANSETRON 4 MG/2 ML VIAL IVP PRN (10:26)
[2024-07-29] MEDS ORDERED: NALOXONE 0.4 MG/ML 1 ML VIAL IV PRN (10:26)
--- NOTE | 2024-07-29 10:52 | P.GSHP ---
History of Present Illness H&P Date: 07/29/24 53 yo female well known to me with a istory of kidney stones. SHe has has been having for left flank and llq pain. She presented to the er with persistent colic and was identified with a 3 mm distal left ureteral stone. She is admitted for ivf and pain control If her pain persists she will undergo a left ureteroscopy with laser lithotripsy tomorrow. There is no evidence of infection - Constitutional Constitutional: Denies chills, Denies fever - EENT Eyes: denies blurred vision, denies pain Ears, nose, mouth and throat: Denies headache, Denies sore throat - Cardiovascular Cardiovascular: Denies chest pain, Denies shortness of breath - Respiratory Respiratory: Denies cough, Denies 7 - Gastrointestinal Gastrointestinal: Denies abdominal pain, Denies diarrhea, Denies nausea, Denies vomiting - Genitourinary (Female) Genitourinary: Denies dysuria, Denies hematuria - Genitourinary (Male) Genitourinary: Denies dysuria, Denies hematuria - Musculoskeletal Musculoskeletal: Denies myalgias - Integumentary Integumentary: Denies pruritus, Denies rash - Neurological Neurological: Denies numbness, Denies weakness - Psychiatric Psychiatric: Denies anxiety, Denies depression - Endocrine Endocrine: Denies fatigue, Denies weight change Past Medical History Past Medical History: GERD/Reflux, Hyperlipidemia, Thyroid Disorder Additional Past Medical History / Comment(s): migraines, mult kidney stones, occ constipation, hiatal hernia, hx of overactive parathyroid (removed). History of Any Multi-Drug Resistant Organisms: None Reported Past Surgical History: Section, Hysterectomy, Orthopedic Surgery Additional Past Surgical History / Comment(s): SEVERAL DOUBLE J STENTS, MULT LITHOTRIPSYS, cystoscopy, BILATERAL percutaneous nephrostolithotomy, sinus surgery, lasik eye surgery, left hip surgery, parathyroidectomy Past Anesthesia/Blood Transfusion Reactions: Previous Problems w/ Anesthesia, Motion Sickness, Postoperative Nausea & Vomiting (PONV) Past Psychological History: No Psychological Hx Reported Smoking Status: Current every day smoker Past Alcohol Use History: None Reported Past Drug Use History: None Reported - Past Family History Mother Family Medical History: No Reported History Medications and Allergies Home Medications Medication Instructions Recorded Confirmed Type Ibuprofen [Motrin] 600 mg PO Q8HR PRN 09/22/23 09/27/23 History Levothyroxine Sodium [Synthroid] 50 mcg PO DAILY 09/22/23 09/27/23 History Linaclotide [Linzess] 72 mcg PO Q2D 09/22/23 09/27/23 History RABEprazole SODIUM 20 mg PO DAILY 09/22/23 09/27/23 History traMADol HCL 50 mg PO Q6H PRN 09/22/23 09/27/23 History HYDROcodone/APAP 5-325MG [[place] 1 tab PO Q4HR PRN #14 tab 09/27/23 Rx 5-325] Ketorolac [Toradol] 10 mg PO Q6HR PRN #20 tab 09/27/23 Rx Allergies Allergy/AdvReac Type Severity Reaction Status Date / Time codeine AdvReac Severe Nausea & Verified 07/29/24 08:02 Vomiting Surgical - Exam Vital Signs Temp Pulse Resp BP Pulse Ox 98.4 F 71 20 100/49 100 07/29/24 08:00 07/29/24 08:00 07/29/24 08:00 07/29/24 08:00 07/29/24 08:00 - General well developed, well nourished, no distress - Eyes normal ocular movement, no icteric - ENT no hearing loss, no congestion - Neck no masses, trachea midline - Respiratory normal respiratory effort, clear to auscultation - Abdomen Abdomen: soft, non tender, no guarding, no rigid, no rebound - Integumentary no rash, no abnormal pigmentation - Neurologic no disoriented, no combative - Psychiatric oriented to time, oriented to person, oriented to place, speech is normal, memory intact Results - Labs 07/29/24 08:20 07/29/24 08:20 Abnormal Lab Results - Last 24 Hours (Table) 07/29/24 07/29/24 Range/Units 08:20 08:20 BUN 19 H (7-17) mg/dL Urine Blood Large H (Negative) Ur Leukocyte Esterase Small H (Negative) Diabetes panel 07/29/24 Range/Units 08:20 Sodium 138 (137-145) mmol/L Potassium 4.2 (3.5-5.1) mmol/L Chloride 103 (98-107) mmol/L Carbon Dioxide 29 (22-30) mmol/L BUN 19 H (7-17) mg/dL Creatinine 1.01 (0.52-1.04) mg/dL Glucose 95 (74-99) mg/dL Calcium 9.2 (8.4-10.2) mg/dL AST 24 (14-36) U/L ALT 17 (4-34) U/L Alkaline Phosphatase 93 (38-126) U/L Total Protein 6.7 (6.3-8.2) g/dL Albumin 4.1 (3.5-5.0) g/dL Calcium panel 07/29/24 Range/Units 08:20 Calcium 9.2 (8.4-10.2) mg/dL Albumin 4.1 (3.5-5.0) g/dL Pituitary panel 07/29/24 Range/Units 08:20 Sodium 138 (137-145) mmol/L Potassium 4.2 (3.5-5.1) mmol/L Chloride 103 (98-107) mmol/L Carbon Dioxide 29 (22-30) mmol/L BUN 19 H (7-17) mg/dL Creatinine 1.01 (0.52-1.04) mg/dL Glucose 95 (74-99) mg/dL Calcium 9.2 (8.4-10.2) mg/dL Adrenal panel 07/29/24 Range/Units 08:20 Sodium 138 (137-145) mmol/L Potassium 4.2 (3.5-5.1) mmol/L Chloride 103 (98-107) mmol/L Carbon Dioxide 29 (22-30) mmol/L BUN 19 H (7-17) mg/dL Creatinine 1.01 (0.52-1.04) mg/dL Glucose 95 (74-99) mg/dL Calcium 9.2 (8.4-10.2) mg/dL Total Bilirubin 0.5 (0.2-1.3) mg/dL AST 24 (14-36) U/L ALT 17 (4-34) U/L Alkaline Phosphatase 93 (38-126) U/L Total Protein 6.7 (6.3-8.2) g/dL Albumin 4.1 (3.5-5.0) g/dL - Imaging CT scan - abdomen: report reviewed, image reviewed CT scan - pelvis: report reviewed, image reviewed Assessment and Plan Assessment: Impression: left ureteral stone with colic. bilateral renal stones Plan: admit, ivf and parenteral pain meds. possible left ureteroscopy with laser lithotripsy
[2024-07-29] MEDS: SODIUM CHLORIDE 0.9% 1,000 ML IV SCH (11:28)
[2024-07-29] MEDS: HYDROmorphone 1 MG/ML 1 ML SYRINGE IVP PRN (13:18)
[2024-07-30] MEDS: DEXAMETHASONE SOD PHOSPHATE 4 MG/ML 1 ML VIAL IV ONE (06:37)
[2024-07-30] MEDS: LACTATED RINGERS 1,000 ML IV SCH (06:38)
[2024-07-30] MEDS ORDERED: HYDROmorphone 0.5 MG/0.5 ML SYRINGE IVP PRN (07:00)
[2024-07-30] MEDS ORDERED: LIDOCAINE 1% (10MG/ML) FOR IV START INTRADERMA PRN (07:00)
[2024-07-30] MEDS ORDERED: fentaNYL (PF) 50 MCG/ML 2 ML AMP IVP PRN (07:00)
[2024-07-30] MEDS ORDERED: MIDAZOLAM 2 MG/2 ML VIAL IV PRN (07:00)
[2024-07-30] MEDS: IV FLUID CONTINUATION 1,000 ML IV ONE (10:21)
[2024-07-30] MEDS: ONDANSETRON 4 MG/2 ML VIAL IVP ONE (10:24)
[2024-07-30] MEDS: SCOPOLAMINE 1 MG/72 HR PATCH TRANSDERM STA (10:30)
[2024-07-30] MEDS ORDERED: fentaNYL (PF) 50 MCG/ML 2 ML AMP ONE (10:49)
[2024-07-30] MEDS ORDERED: ceFAZolin 1 GM/50 ML BAG (PMX) ONE (10:49)
[2024-07-30] MEDS ORDERED: MIDAZOLAM 2 MG/2 ML VIAL ONE (10:49)
[2024-07-30] MEDS ORDERED: LIDOCAINE 1% INJ 10MG/ML (20 ML MDV) ONE (10:49)
[2024-07-30] MEDS ORDERED: PHENYLEPHRINE 10 MG/ML VIAL ONE (10:49)
[2024-07-30] MEDS ORDERED: PROPOFOL 10 MG/ML 20 ML VIAL IV ONE (10:49)
[2024-07-30] MEDS: SODIUM CHLORIDE 0.9% 50 ML with ceFAZolin 2,000 MG IV ONE (11:04)
--- NOTE | 2024-07-30 11:57 | P.OP ---
Date of Procedure: 07/30/24 Preoperative Diagnosis: Left ureteral calculi with obstruction Postoperative Diagnosis: same Procedure(s) Performed: cystoscopy, left ureteroscopy with laser lithotripsy, placement of [id number] stent Anesthesia: HEATHER Surgeon: Pancho James Estimated Blood Loss (ml): 0 Pathology: other (stone) Condition: stable Disposition: PACU Indications for Procedure: the patient is 53. She is active urolithiasis. She presented yesterday to midureteral stones causing obstruction and possibly at the distal 1 all on the left side. She comes ureteroscopy laser lithotripsy Description of Procedure: patient brought operating suite. Given general anesthetic. Placed lithotomy position with sterile prep and drape. On fluoroscopy to see 2 stones in the region of the mid ureter above the iliac vessels. I passed the semirigid ureteroscope into the distal ureter and find a stone probably 78 mm just above the ureterovesical junction. With the 242 laser probe and 8 W of energy the stone was broken into tiny pieces and flushed out of the ureter. I then pass a ureteroscope up above the iliac vessels on the left side and identify tumor or stones. I used laser lithotripsy to break these up there is a third stone falls down laser lithotripsy that stone also. With the stone basket I basket all the fragments up. Due to the significant amount of stones and edema stent will be placed. I removed the ureteroscope and see no remaining stones in the ureter. I reintroduced the cystoscope and passed an 035 wire up into the kidney and over the wires passed a 6 x 24 double-J catheter will remain in place for 72 hours relieve any edema.
--- NOTE | 2024-07-30 11:58 | P.DS ---
Providers Date of admission: 07/29/24 10:43 Attending physician: Pancho James Primary care physician: Erik Kimble Hospital Course: patient is 53. She has active urolithiasis. She is admitted 07/29/24 with 2 obstructing left ureteral stone. She underwent cystoscopy left ureteroscopy laser lithotripsy to 3 possibly for ureteral stones today. She tolerated this well. A stent will be placed. She will be discharged home later today and a regular diet limited activity. She'll follow-up in the office in 3 days for stent removal. She has pain medicine at home. Postoperative instructions been given. Condition is good. Patient Condition at Discharge: Fair Plan - Discharge Summary Discharge Rx Participant: Yes New Discharge Prescriptions: No Action Levothyroxine Sodium [Synthroid] 50 mcg PO DAILY RABEprazole SODIUM 20 mg PO BID Atorvastatin [Lipitor] 40 mg PO HS Discharge Medication List Levothyroxine Sodium [Synthroid] 50 mcg PO DAILY 09/22/23 [History] RABEprazole SODIUM 20 mg PO BID 09/22/23 [History] Atorvastatin [Lipitor] 40 mg PO HS 07/29/24 [History] Follow up Appointment(s)/Referral(s): Erik Kimble DO [Primary Care Provider] - 1-2 days Pancho James MD [STAFF PHYSICIAN] - 08/02/24 (cystoscopy with stent removal) Patient Instructions/Handouts: *Surgery [facility] - Scopalamine Patch Instructions Discharge Disposition: HOME SELF-CARE
--- NOTE | 2024-07-30 12:44 | FL ---
Fluoroscopy History: CYSTOSCOPY LITHO L SIDE STONE, 6SEC FL TIME, [id number] [facility], , 07/30/2024 12:42 PM
[2024-07-30 13:36] VITALS: BP 114/66; PULSE 74; RESP 17; TEMP 97.9
== END 2024-07-30 14:48 | disposition home or self-care (01) ==
LOC: EC 07:46 → 5NMEDONC 10:43 → 1SOBS 19:35
PROVIDERS: ADMIT Urology; ATTEND Urology
DX: N20.2 Calculus of kidney with calculus of ureter (principal); F17.210 Nicotine dependence, cigarettes, uncomplicated; Z79.899 Other long term (current) drug therapy; Z79.890 Hormone replacement therapy; Z87.442 Personal history of urinary calculi; Z88.5 Allergy status to narcotic agent
CPT/HCPCS: 52356; 96375 ×2; 96376 ×2; 96361; 96374; 99285; 36415; 80053; 83605; 85025; 81001; 82365; 74176; G0378 ×2; C2625; C1769; J2250; J1100; J2405; J0690 ×2; J2003; J3010; J1171 ×2; J1885; J2704; J2371